=== PATIENT | female | born 1990 | race Caucasian/White ===

== ENCOUNTER → 2021-02-07 15:45 | Outpatient (BNVA) | payer SELFPAY | PROVIDERS: Family Provider Electrodiagnostic Medicine; PCP Registered Nurse; Visit Provider Registered Nurse | DX: Z20.2 Contact with and (suspected) exposure to infections with a predominantly sexual mode of transmission (principal); Z11.3 Encounter for screening for infections with a predominantly sexual mode of transmission | CPT/HCPCS: 87491; 87591; 87661 ==

== ENCOUNTER 2021-11-07 12:02 | Inpatient (IN) | payer MEDICAID, SELFPAY ==
[2021-11-07 12:10] VITALS: BP 106/71; PULSE 117; RESP 17; TEMP 36.4; O2SAT 100; BMI 21.2
--- NOTE | 2021-11-07 12:33 | ECG_ITS ---
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 [id number]
--- NOTE | 2021-11-07 12:36 | ED_ITS ---
HPI - General Adult General: Chief complaint: Psychiatric Symptoms Stated complaint: SI thoughts, severe depression Time Seen by Provider: 11/07/21 12:19 History of Present Illness: HPI: [31]yo patient w/ hx of depression BIBA and polysubstance use presenting to the ED for worsening depression. Patient reports I would be . Patient reports difficulty quitting meth use but denies having any active plans. On arrival, the patient is AAOx3 and cooperative with my evaluation. No focal complaints of chest pain, shortness of breath, palpitations, N/V, focal GI/ complaints. Currently denies HI. No complaints of hallucinations. Onset: chronic Duration: ongoing Location: home Severity: severe Associated symptoms: Deny chest pain, dyspnea, nausea, rash, palpitations or vomiting Review of Systems Const: Denies: fever(s) or chills Eyes: Denies: change in vision ENMT: Denies: mouth pain Card: Denies: chest pain or palpitations Resp: Denies: dyspnea or non-productive cough GI: Denies: abdominal pain, nausea, vomiting or diarrhea : Denies: dysuria Musc: Denies: extremity pain Skin/Breast: Denies: rash or new lesions Neuro: Denies: weakness in extremities Psych: Reports: depression Abdiel/Lymph: Denies: easy bruising PFSH ED PFSH: Family History Grandfather Diabetes Grandmother Diabetes Family/Other Diabetes Aunt Uncle Social History Smoking and tobacco status: current every day smoker Adopted: No Physical Exam Const: COMMON NORMALS: alert HENMT: COMMON NORMALS: atraumatic HEAD & SCALP: atraumatic MOUTH: moist mucous membranes not abnormal Eye: COMMON NORMALS: EOMs intact bilaterally and conjunctivae normal CONJUNCTIVA: Yes conjunctivae normal Neck/C-Spine: COMMON NORMALS: full ROM and supple Resp: COMMON NORMALS: normal respiratory effort and clear to auscultation bilaterally AUSCULTATION: clear to auscultation bilaterally Cardio: COMMON NORMALS: regular rate RATE: regular rate GI: COMMON NORMALS: Soft to palpation and non-tender PALPATION: Yes Soft to palpation Extremity: COMMON NORMALS: full ROM Neuro: SENSORIUM/ORIENTATION: Yes alert MOTOR EXAM: No Abnormal motor strength present and Other motor observations present (no focal motor deficits) Psych: COMMON NORMALS: speech normal SPEECH: Yes normal speech MOOD & AFFECT: Yes depressed mood Course Vital Signs: Vital signs: Vital Signs Temperature 97.9 F 11/09/21 22:00 Pulse Rate 75 11/10/21 09:34 Respiratory Rate 16 11/10/21 09:34 Blood Pressure 94/56 11/10/21 09:34 Pulse Oximetry 97 11/10/21 09:34 MDM - General Adult Medical Decision Making [31]yo patient w/ hx of depression and meth use presenting for worsening depression x 3 months. HDS, exam within normal limit Thoughts are linear and organized, and the patient has no AH/VH, or HI. Clinically the patient displays no overt toxidrome; they are well appearing, with low suspicion for toxic ingestion given history and exam. Symptoms unlikely 2/2 anemia, hypothyroidism, infection, or ICH. Workup: CBC, CMP, Lipase, salicylate/tylenol, UDS, drug screen, TSH/free T4, EKG, HCG, and covid antigen Lab findings: wnl, +meth [1:30pm] On reassessment, labs and workup wnl. Patient is hemodynamically stable with no acute medical complaints. Case discussed with psychiatric provider Dr. Haynes at [facility] psych inpatient with recommendation for admission Disposition: Psych Lab Data : 11/07/21 13:00 11/07/21 13:00 Laboratory Results WBC 10.3 10^3/uL (4.0-10.0) H 11/07/21 13:00 RBC 4.67 10^6/uL (4.1-5.3) 11/07/21 13:00 Hgb 14.8 g/dL (11.5-15.3) 11/07/21 13:00 Hct 45.6 % (37.0-47.0) 11/07/21 13:00 MCV 97.6 fl (81-99) 11/07/21 13:00 MCH 31.7 pg (28.0-34.0) 11/07/21 13:00 MCHC 32.5 g/dL (30.0-36.0) 11/07/21 13:00 RDW 11.9 % (12.1-15.1) L 11/07/21 13:00 Plt Count 357 10^3/cmm (130-400) 11/07/21 13:00 MPV 9.5 fL (7.4-10.4) 11/07/21 13:00 Neut % (Auto) 70.2 % 11/07/21 13:00 Lymph % (Auto) 16.1 % 11/07/21 13:00 [place] % (Auto) 8.7 % 11/07/21 13:00 Eos % (Auto) 3.4 % 11/07/21 13:00 Baso % (Auto) 1.1 % 11/07/21 13:00 Neut # (Auto) 7.24 10^3/uL (1.8-7.7) 11/07/21 13:00 Lymph # (Auto) 1.7 10^3/uL (0.8-4.8) 11/07/21 13:00 [place] # (Auto) 0.9 10^3/uL (0.2-0.9) 11/07/21 13:00 Eos # (Auto) 0.4 10^3/uL (0.0-0.8) 11/07/21 13:00 Baso # (Auto) 0.1 10^3/uL (0.0-0.1) 11/07/21 13:00 Nucleated RBC % (auto) 0 % 11/07/21 13:00 Nucleated RBCs # 0.0 /100WBC 11/07/21 13:00 Sodium 138 mmol/L (136-145) 11/07/21 13:00 Potassium 4.0 mmol/L (3.5-5.1) 11/07/21 13:00 Chloride 105 mmol/L (98-107) 11/07/21 13:00 Carbon Dioxide 23 mmol/L (22-29) 11/07/21 13:00 Anion Gap 14.0 (5-19) 11/07/21 13:00 BUN 8 mg/dL (6-20) 11/07/21 13:00 Creatinine 0.5 mg/dL (0.5-0.9) 11/07/21 13:00 GFR Calculation 145.9 mL/min (90-130) H 11/07/21 13:00 Glucose 65 mg/dL (65-115) 11/07/21 13:00 Calculated Osmolality 282 mOsm/kg (285-295) L 11/07/21 13:00 Calcium 9.4 mg/dL (8.5-10.5) 11/07/21 13:00 HCG, Qual Negative (Negative) 11/07/21 13:00 Salicylates < 0.3 mg/dL (3-10) L 11/07/21 13:00 Urine Opiates Screen Negative ng/mL (Negative) 11/07/21 13:48 Acetaminophen < 5.0 ug/mL (10-30) L 11/07/21 13:00 Ur Barbiturates Screen Negative ng/mL (Negative) 11/07/21 13:48 Ur Phencyclidine Scrn Negative ng/mL (Negative) 11/07/21 13:48 Ur Amphetamines Screen Positive ng/mL (Negative) H 11/07/21 13:48 U Benzodiazepines Scrn Negative ng/mL (Negative) 11/07/21 13:48 Urine Cocaine Screen Negative ng/mL (Negative) 11/07/21 13:48 U Marijuana (THC) Screen Negative ng/mL (Negative) 11/07/21 13:48 Discharge Plan Discharge Patient Disposition: Admitted As Inpatient Admit Provider: Clint Haynes Clinical Impression: Depression, Depression with suicidal ideation Condition: Stable Discharge Diet: Regular Discharge Activity: Resume usual activity Coding Level of Care Code ED Correctional Maintenance Technician for Chriss Fwd Exam Comprehensive
[2021-11-07 13:08] LABS: Basophils # 0.1 10^3/uL (0.0-0.1); Basophils % 1.1 %; Eosinophils # 0.4 10^3/uL (0.0-0.8); Eosinophils % 3.4 %; Hematocrit 45.6 % (37.0-47.0); Hemoglobin 14.8 g/dL (11.5-15.3); Lymphocytes # 1.7 10^3/uL (0.8-4.8); Lymphocytes % 16.1 %; Mean Corpuscular HGB Conc 32.5 g/dL (30.0-36.0); Mean Corpuscular Hemoglobin 31.7 pg (28.0-34.0); Mean Corpuscular Volume 97.6 fl (81-99); Mean Platelet Volume 9.5 fL (7.4-10.4); Monocytes # 0.9 10^3/uL (0.2-0.9); Monocytes % 8.7 %; Neutrophils # 7.24 10^3/uL (1.8-7.7); Neutrophils % 70.2 %; Nucleated Red Blood Cells % 0 %; Platelet Count 357 10^3/cmm (130-400); Red Blood Count 4.67 10^6/uL (4.1-5.3); Red Cell Distribution Width 11.9 % (12.1-15.1); White Blood Count 10.3 10^3/uL (4.0-10.0)
[2021-11-07 13:25] LABS: HCG, Serum Qual Negative (Negative)
[2021-11-07 13:29] LABS: Blood Urea Nitrogen 8 mg/dL (6-20); Calcium 9.4 mg/dL (8.5-10.5); Carbon Dioxide 23 mmol/L (22-29); Chloride 105 mmol/L (98-107); Glomerular Filtration Rate 145.9 mL/min (90-130); Glucose 65 mg/dL (65-115); Osmolality Calculated 282 mOsm/kg (285-295); Sodium 138 mmol/L (136-145)
[2021-11-07 13:36] VITALS: BP 106/71; PULSE 117; RESP 17; O2SAT 100
[2021-11-07 13:38] LABS: Acetaminophen < 5.0 ug/mL (10-30); Salicylate < 0.3 mg/dL (3-10)
[2021-11-07] MEDS: LORazepam 2 mg Tablet PO (13:38)
[2021-11-07 14:40] LABS: Amphetamines Screen Urine Positive (Negative); Barbiturates Screen Urine Negative (Negative); Benzodiazepines Screen Urine Negative (Negative); Cocaine Screen Urine Negative (Negative); Opiate Screen Urine Negative (Negative); PCP Screen Urine Negative (Negative); THC Screen Urine Negative (Negative)
--- NOTE | 2021-11-07 16:28 | PC.NURSE ---
REPORT CALLED TO MAYA RODRIGUEZ
[2021-11-07 18:28] VITALS: BP 100/69; PULSE 89; RESP 17; TEMP 36.8; O2SAT 95
[2021-11-07] MEDS: nicotine 2 mg Gum BUCCAL (18:31)
[2021-11-07 20:26] VITALS: BP 114/65; PULSE 91; RESP 18; TEMP 36.6; O2SAT 99
[2021-11-08 05:44] VITALS: BP 94/60; PULSE 66; RESP 17; TEMP 36.6; O2SAT 99
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
[2021-11-08] MEDS: nicotine 21 mg Patch 1 PATCH TRANSDERMA (09:11)
[2021-11-08] MEDS: fixodent 39 gm Tube 1 APPLIC DENTAL ×2 (10:25→18:22)
[2021-11-08] MEDS: fluoxetine 20 mg Capsule PO (12:27)
--- NOTE | 2021-11-08 12:51 | NPU.GN ---
[facility] Group Topic:Coping Skills General Mood of Group: Ayesha did particpate and attend group today. Her hygiene was good. She seemed emotional. This client was aided in competing the new patient packet for [facility] for therapy and [facility] services.
[2021-11-08] MEDS: acetaminophen 325 mg Tablet 650 MG PO ×2 (13:15→18:54)
[2021-11-08 14:00] VITALS: BP 101/63; PULSE 97; RESP 20; TEMP 37; O2SAT 98
[2021-11-08] MEDS: ARIPiprazole 10 mg Tablet 5 MG PO (17:45)
[2021-11-08 20:16] VITALS: BP 100/62; PULSE 97; RESP 16; TEMP 36.7; O2SAT 97
[2021-11-08] MEDS: ibuprofen 600 mg Tablet PO (21:26)
[2021-11-08] MEDS: blistex lip oint 7 gm Tube 1 APPLIC TOPICAL (21:27)
[2021-11-09] MEDS: trazodone 50 mg Tablet PO (00:15)
--- NOTE | 2021-11-09 03:29 | PC.NURSE ---
Patient c/o cramps due to endometriosis, given PRN ibuprofen with noted effectiveness. Patient later came to nurses desk c/o trouble sleeping, given PRN trazodone with noted effectiveness.
[2021-11-09 06:00] VITALS: BP 98/59; PULSE 57; RESP 16; O2SAT 97
[2021-11-09] MEDS: acetaminophen 325 mg Tablet 650 MG PO (09:24)
[2021-11-09] MEDS: fluoxetine 20 mg Capsule PO (09:24)
[2021-11-09] MEDS: ARIPiprazole 10 mg Tablet PO (09:24)
[2021-11-09] MEDS: nicotine 2 mg Gum BUCCAL ×2 (10:28→10:46)
[2021-11-09] MEDS: nicotine 4 mg lozenge MUCOUS MEM (12:24)
[2021-11-09] MEDS: hyDROXYzine 25 mg Capsule 50 MG PO (12:43)
--- NOTE | 2021-11-09 12:48 | NPU.GN ---
[facility] Topic:Symptoms/ Judgment Boat Activity General Mood of Group: Ayesha did attend and participate in group today. Hygiene was ok , was a bit emotional starting crying during group and left for a few minutes and then came back to group to continue the activity.
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
[2021-11-09 14:00] VITALS: BP 97/56; PULSE 90; RESP 22; TEMP 36.6; O2SAT 99
[2021-11-09] MEDS: ibuprofen 600 mg Tablet PO (14:15)
[2021-11-09] MEDS: OLANZapine 5 mg ODT PO (14:17)
[2021-11-09] MEDS: sertraline 50 mg Tablet 25 MG PO (18:00)
[2021-11-09 22:00] VITALS: BP 97/56; PULSE 90; RESP 22; TEMP 36.6; O2SAT 99
[2021-11-10 06:00] VITALS: BP 94/56; PULSE 75; RESP 16; O2SAT 97
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
[2021-11-10 09:34] VITALS: BP 94/56; PULSE 75; RESP 16; O2SAT 97
== END 2021-11-10 10:17 | disposition home or self-care (01) | DRG 885 ==
LOC: ER 14:18 → NP 11-08 06:04
PROVIDERS: Admitting Provider Psychiatry & Neurology Psychiatry; Emergency Provider Emergency Medicine; PCP Registered Nurse; Visit Provider Psychiatry & Neurology Psychiatry
DX: F29 Unspecified psychosis not due to a substance or known physiological condition (principal); F41.8 Other specified anxiety disorders; F17.210 Nicotine dependence, cigarettes, uncomplicated; F15.10 Other stimulant abuse, uncomplicated; Z11.3 Encounter for screening for infections with a predominantly sexual mode of transmission
CPT/HCPCS: 80048; 80306; 80307; 84703; 85025; 93005; 97150; 97165

== ENCOUNTER 2022-02-14 05:41 | Emergency (ER) | payer MEDICAID, SELFPAY ==
[2022-02-14 05:43] VITALS: BP 104/65; PULSE 92; RESP 18; TEMP 36.6; O2SAT 99
[2022-02-14 06:00] VITALS: BP 105/59; PULSE 95; RESP 18; O2SAT 98
[2022-02-14 06:15] VITALS: BP 102/63; PULSE 85; RESP 18; O2SAT 100
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
[2022-02-14 06:30] VITALS: BP 110/64; PULSE 85; RESP 18; O2SAT 100
[2022-02-14 06:34] LABS: Basophils % 0.7 %; Eosinophils % 0.5 %; Hematocrit 34.7 % (37.0-47.0); Hemoglobin 11.9 g/dL (11.5-15.3); Lymphocytes # 1.4 10^3/uL (0.8-4.8); Lymphocytes % 23.5 %; Mean Corpuscular HGB Conc 34.3 g/dL (30.0-36.0); Mean Corpuscular Hemoglobin 31.8 pg (28.0-34.0); Mean Corpuscular Volume 92.8 fl (81-99); Mean Platelet Volume 10.5 fL (7.4-10.4); Monocytes # 0.8 10^3/uL (0.2-0.9); Neutrophils # 3.64 10^3/uL (1.8-7.7); Neutrophils % 62.1 %; Nucleated Red Blood Cells % 0 %; Platelet Count 281 10^3/cmm (130-400); Red Blood Count 3.74 10^6/uL (4.1-5.3); Red Cell Distribution Width 13.3 % (12.1-15.1); White Blood Count 5.9 10^3/uL (4.0-10.0)
[2022-02-14] MEDS: hyDROXYzine 25 mg Capsule PO (06:39)
[2022-02-14 07:30] VITALS: BP 117/76; PULSE 83; RESP 12; O2SAT 97
== END 2022-02-14 07:47 | disposition home or self-care (01) ==
PROVIDERS: Emergency Provider Family Medicine
DX: F15.10 Other stimulant abuse, uncomplicated (principal); F41.9 Anxiety disorder, unspecified; F17.200 Nicotine dependence, unspecified, uncomplicated
CPT/HCPCS: 85025; 99283

== ENCOUNTER 2022-03-01 04:49 | Inpatient (IN) | payer MEDICAID, SELFPAY ==
[2022-03-01] VITALS (10 sets, daily range): BP systolic 86–133; BP diastolic 52–80; PULSE 60–120; RESP 13–18; TEMP 36.2–36.7; O2SAT 93–100; BMI 20.3
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
[2022-03-01] MEDS: LORazepam 2 mg/mL INJ 1 mL IVP (05:07)
[2022-03-01 05:18] LABS: Basophils # 0.1 10^3/uL (0.0-0.1); Basophils % 0.9 %; Eosinophils % 0.2 %; Hematocrit 37.6 % (37.0-47.0); Hemoglobin 12.8 g/dL (11.5-15.3); Lymphocytes # 1.2 10^3/uL (0.8-4.8); Lymphocytes % 12.7 %; Mean Corpuscular Hemoglobin 32.1 pg (28.0-34.0); Mean Corpuscular Volume 94.2 fl (81-99); Mean Platelet Volume 9.5 fL (7.4-10.4); Monocytes # 0.9 10^3/uL (0.2-0.9); Monocytes % 9.9 %; Neutrophils # 6.99 10^3/uL (1.8-7.7); Neutrophils % 76.1 %; Nucleated Red Blood Cells % 0 %; Platelet Count 284 10^3/cmm (130-400); Red Blood Count 3.99 10^6/uL (4.1-5.3); Red Cell Distribution Width 13.5 % (12.1-15.1); White Blood Count 9.2 10^3/uL (4.0-10.0)
[2022-03-01 05:28] LABS: HCG, Serum Qual Negative (Negative)
[2022-03-01 05:40] LABS: Alanine Aminotransferase 11 U/L (0-33); Albumin Level 4.3 g/dL (3.5-5.2); Alkaline Phosphatase 76 IU/L (35-105); Anion Gap 15.6 (5-19); Aspartate Amino Transferase 12 U/L (0-32); Blood Urea Nitrogen 11 mg/dL (6-20); Calcium 8.6 mg/dL (8.5-10.5); Carbon Dioxide 23 mmol/L (22-29); Chloride 103 mmol/L (98-107); Globulin 2.6 g/dL (1.3-4.6); Glomerular Filtration Rate 118.2 mL/min (90-130); Glucose 103 mg/dL (65-115); Osmolality Calculated 286 mOsm/kg (285-295); Potassium 3.6 mmol/L (3.5-5.1); Sodium 138 mmol/L (136-145); Total Bilirubin 0.2 mg/dL (0.15-1.2); Total Protein 6.9 g/dL (6.6-8.7)
[2022-03-01 05:42] LABS: Acetaminophen < 5.0 ug/mL (10-30); Alcohol Level < 10 mg/dL (0-10); Salicylate < 0.3 mg/dL (3-10)
--- NOTE | 2022-03-01 07:15 | PC.NURSE ---
Shift report received. Pt resting in bed, eyes closed, resp even and unlabored. Care assumed.
--- NOTE | 2022-03-01 09:16 | PC.PHAR ---
pt unable to verify medications-medications entered are from previous entered med list and ext med history notes are made in the pharmacy comments
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
[2022-03-01] MEDS: OLANZapine 5 mg ODT PO (14:41)
[2022-03-02 06:18] VITALS: BP 89/52; PULSE 63; RESP 14; TEMP 36.8; O2SAT 97
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
[2022-03-02] MEDS: fixodent 39 gm Tube 1 APPLIC DENTAL ×2 (10:32→20:56)
[2022-03-02] MEDS: nicotine 21 mg Patch 1 PATCH TRANSDERMA (10:34)
[2022-03-02] MEDS: sertraline 50 mg Tablet 200 MG PO (10:34)
[2022-03-02] MEDS: acetaminophen 325 mg Tablet 650 MG PO ×2 (11:00→14:51)
[2022-03-02] MEDS: buPROPion SR (12 HR) 150 mg Tablet PO (13:52)
[2022-03-02 14:00] VITALS: BP 104/61; PULSE 120; RESP 17; TEMP 36.7; O2SAT 98
[2022-03-02 19:31] VITALS: BP 109/71; PULSE 105; RESP 18; TEMP 36.9; O2SAT 98
[2022-03-02] MEDS: risperiDONE 2 mg Tablet PO (20:56)
[2022-03-02] MEDS: trazodone 50 mg Tablet PO (20:57)
[2022-03-03 06:00] VITALS: BP 99/62; PULSE 66; RESP 18; TEMP 36.6; O2SAT 97
[2022-03-03] MEDS: buPROPion SR (12 HR) 150 mg Tablet PO (06:10)
[2022-03-03] MEDS: nicotine 21 mg Patch 1 PATCH TRANSDERMA (08:35)
[2022-03-03] MEDS: sertraline 50 mg Tablet 200 MG PO (08:35)
[2022-03-03] MEDS: propranolol 20 mg Tablet PO (08:57)
--- NOTE | 2022-03-03 10:08 | P.NPUPN_ITS ---
Subjective NPU Subjective: She says that she is feeling somewhat better. She slept well with the trazodone 50 mg last night. She could not tell anything from the Wellbutrin 150 mg yesterday afternoon or this morning. She cannot tell anything and does not have side effects from the Zoloft 200 mg. We talked more about the long- term consequences of methamphetamine. She says that she did not know that he could cause permanent psychosis. She was encouraged to really think about the short-term and long-term consequences to her methamphetamine abuse and consider making a commitment to abstain permanently. Mental Status Exam MSE Comments: This is a 31-year-old thin female who appears a little older than her stated age and is in no acute distress. She was found in bed at 9:30 AM but arouses easily. Her grooming is poor and she is dressed in hospital scrubs. psychomotor activity is normal. Speech is at a regular rate and rhythm, normal volume, good articulation, not pressured. Alert, oriented X3 Attention and concentration appears to be normal. Memory is intact Mood is mildly depressed. Affect is mildly dysphoric. Thought process is logical and goal-directed. Thought content: She denies auditory and visual hallucinations hallucinations. She does not appear delusional at this time. No current suicidal ideation. He denies homicidal ideation. Fund of knowledge is average. Insight and judgment appear to be poor. Impulse control is poor. Cognition: Patient Appearance: Disheveled/Poor Hygiene Level of Consciousness: Awake and Alert Patient Cognition Impaired: No Ability to Follow Directions: Poor Patient Orientation (long list): Person, Place, Name, Age, Birthday, Month and Year Comprehension Ability: Moderate Impairment Hallucination Type: None Delusion Description: Not Present Thought Process: Appropriate Affect: Affect Description: Appropriate Depressive Symptoms: Insomnia Behavior: Patient Behavior: Appropriate and Cooperative Speech Pattern: Appropriate Vitals/I&O/Wt Last Vital Signs Temp 97.9 F 03/03/22 06:00 Pulse 66 03/03/22 06:00 Resp 18 03/03/22 06:00 BP 99/62 03/03/22 06:00 Pulse Ox 97 03/03/22 06:00 Data NPU : 03/01/22 05:10 03/01/22 05:10 A&P Assessment and plan (1) Acute psychosis: Status: Acute (2) Bipolar disorder: Status: Acute (3) Major depressive disorder, recurrent, mild: Status: Acute (4) Alcohol dependence, uncomplicated: Status: Acute (5) Methamphetamine abuse: Status: Acute (6) Anxiety: Status: Acute Plan This is a 31-year-old female with chronic methamphetamine abuse, anxiety and depression who reports ongoing auditory and visual hallucinations plan: 1. Continue current medication. Increase Zoloft to 200 mg daily. Add risperidone 2 mg with the plan to increase as tolerated. Increase Wellbutrin to 300 mg daily 2. Continue every 15 minute checks for safety. 3. Encourage individual, group and milieu therapies. 4. Encourage sober living treatment after discharge at the highest level of care to which she is willing to commit. 5. We will monitor for safety for herself in the community prior to discharge. Involuntary Hold Information 96 Hour Hold: 96 Hour Involuntary Admission: Yes 96 Hour Hold Ending Date: 03/07/22 96 Hour Hold Ending Time: 09:45 Attestations NPU Medical Necessity Statement*: Inpatient hospitalization is medically necessary and the clinically appropriate intervention at this time. We will initiate medications and make changes as indicated. Coding Level of Care Code Acute Spring Production Supervisor for Chriss Daley Diagnoses Acute psychosis F23 Bipolar disorder F31.9 Major depressive disorder, recurrent, mild F33.0 Alcohol dependence, uncomplicated F10.20 Methamphetamine abuse F15.10 Anxiety F41.9
[2022-03-03] MEDS: acetaminophen 325 mg Tablet 650 MG PO (10:19)
[2022-03-03 14:00] VITALS: BP 106/62; PULSE 66; RESP 18; TEMP 36.6; O2SAT 99
[2022-03-03 19:58] VITALS: BP 100/69; PULSE 90; RESP 22; TEMP 36.7; O2SAT 98
[2022-03-03] MEDS: trazodone 50 mg Tablet PO (20:14)
[2022-03-03] MEDS: risperiDONE 2 mg Tablet PO (20:15)
[2022-03-04 06:00] VITALS: BP 98/56; PULSE 69; RESP 16; TEMP 36.8; O2SAT 96; BMI 20.3
[2022-03-04] MEDS: sertraline 50 mg Tablet 200 MG PO (08:14)
[2022-03-04] MEDS: buPROPion XL (24 HR) 300 mg Tablet PO (08:14)
[2022-03-04] MEDS: nicotine 21 mg Patch 1 PATCH TRANSDERMA (08:44)
--- NOTE | 2022-03-04 10:52 | P.NPUPN_ITS ---
Subjective NPU Subjective: She is doing much better. She says that her mind is thinking clearly. She has plenty of energy and does not feel like she would have a problem going to work. She seems to have better insight into the problems that methamphetamine is causing her. She is adamant that she is not going to go back to using that. She is not sure if she still has a job. She was not a very good employee and they gave her a lot of chances before. She would not blame them if they fired her. Mental Status Exam MSE Comments: This is a 31-year-old thin female who appears a little older than her stated age and is in no acute distress. She was found in the day room at 10:45 AM watching television. Her grooming is fair and she is dressed in hospital scrubs. psychomotor activity is normal. Speech is at a regular rate and rhythm, normal volume, good articulation, not pressured. Alert, oriented X3 Attention and concentration appears to be normal. Memory is intact Mood is good. Affect is euthymic. Thought process is logical and goal-directed. Thought content: She denies auditory and visual hallucinations hallucinations. She does not appear delusional at this time. No current suicidal ideation. He denies homicidal ideation. Fund of knowledge is average. Insight and judgment appear to be improved. Impulse control is improved. Cognition: Patient Appearance: Appropriate Level of Consciousness: Awake and Alert Patient Cognition Impaired: No Ability to Follow Directions: Poor Patient Orientation (long list): Person, Place, Name, Age, Birthday, Month and Year Comprehension Ability: Moderate Impairment Hallucination Type: None Delusion Description: Not Present Thought Process: Appropriate Affect: Affect Description: Appropriate Depressive Symptoms: Insomnia Behavior: Patient Behavior: Appropriate and Cooperative Speech Pattern: Appropriate Vitals/I&O/Wt Last Vital Signs Temp 98.2 F 03/04/22 06:00 Pulse 69 03/04/22 06:00 Resp 16 03/04/22 06:00 BP 98/56 03/04/22 06:00 Pulse Ox 96 03/04/22 06:00 Weight last 48 hrs Weight 52.163 kg Data NPU : 03/01/22 05:10 03/01/22 05:10 A&P Assessment and plan (1) Acute psychosis: Status: Acute (2) Bipolar disorder: Status: Acute (3) Major depressive disorder, recurrent, mild: Status: Acute (4) Alcohol dependence, uncomplicated: Status: Acute (5) Methamphetamine abuse: Status: Acute (6) Anxiety: Status: Acute Plan This is a 31-year-old female with chronic methamphetamine abuse, anxiety and depression who reports ongoing auditory and visual hallucinations plan: 1. Continue current medication. Increase Zoloft to 200 mg daily. risperidone 2 mg with the plan to increase as tolerated. Increase Wellbutrin to 300 mg daily 2. Continue every 15 minute checks for safety. 3. Encourage individual, group and milieu therapies. 4. Encourage sober living treatment after discharge at the highest level of care to which she is willing to commit. 5. We will monitor for safety for herself in the community prior to discharge. Involuntary Hold Information 96 Hour Hold: 96 Hour Involuntary Admission: Yes 96 Hour Hold Ending Date: 03/07/22 96 Hour Hold Ending Time: 09:45 Attestations NPU Medical Necessity Statement*: Inpatient hospitalization is medically necessary and the clinically appropriate intervention at this time. We will initiate me dications and make changes as indicated. Coding Level of Care Code Acute [employer] Launch [employer] for Chriss Daley Diagnoses Acute psychosis F23 Bipolar disorder F31.9 Major depressive disorder, recurrent, mild F33.0 Alcohol dependence, uncomplicated F10.20 Methamphetamine abuse F15.10 Anxiety F41.9
[2022-03-04 13:14] VITALS: BP 100/62; PULSE 99; RESP 16; TEMP 36.7; O2SAT 98
[2022-03-04] MEDS: OLANZapine 5 mg ODT PO (13:51)
--- NOTE | 2022-03-04 18:50 | PC.NURSE ---
PRN MEDICATION PT C/O ANXIETY. ZYDIS GIVEN ORDERED.
[2022-03-04] MEDS: risperiDONE 2 mg Tablet PO (20:44)
[2022-03-04] MEDS: trazodone 50 mg Tablet PO (20:44)
[2022-03-04 20:46] VITALS: BP 141/93; PULSE 79; RESP 16; TEMP 36.8; O2SAT 98
[2022-03-05 06:00] VITALS: BP 107/58; PULSE 81; RESP 14; TEMP 36.1; O2SAT 96
--- NOTE | 2022-03-05 07:50 | W.PM.NPUDCS ---
Diagnoses at Discharge Discharge Diagnosis (1) Acute psychosis: Status: Acute (2) Bipolar disorder: Status: Acute (3) Major depressive disorder, recurrent, mild: Status: Acute (4) Alcohol dependence, uncomplicated: Status: Acute (5) Methamphetamine abuse: Status: Acute (6) Anxiety: Status: Acute Reason for Visit Reason for Visit: grossman cp Brief History: History of Present Illness Ayesha Villatoro is a 31 year old female admitted to our emergency department with the following report: 31-year-old female who has a history of methamphetamine abuse.? States she last used 2 days ago police were at the scene at her house EMS arrived as well patient is having hallucinations.? She is states she feels like someone is poisoning her and that she is dying.? States she feels like her ex-boyfriend's been out to get her she says that she feels like she has laser beams that are burning her eyes and laser beams in her chest.? She denies any suicidal or homicidal ideation.? Denies any worsening improving factors.? She also states she has been having some suicidal ideations as well. Associated symptoms: Deny chest pain, dyspnea, headache(s), nausea, rash or vomiting She was admitted to the neuropsychiatry unit for definitive treatment of these issues.? She says she has continued to take the Zoloft 100 mg daily and feels that it is beneficial.? She saw Madeleine Cordova in the outpatient department and was prescribed Abilify 5 mg daily.? She did not take that because it makes her tongue feels swollen.? She has difficulty swallowing.? She has continued to use methamphetamine on a daily basis.? She has continued to have auditory and visual hallucinations as well as paranoia.? She says that she needs the methamphetamine to give her energy to work and function.? She did not go to the outpatient treatment as recommended.? 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 She is mostly concerned about going home so that she can go to work this week and make money.? She does want to take something to help her hallucinations.? She agreed to take some risperidone.? She is not concerned about increased appetite.? She has lost weight this year.? She does not sleep.? She also requested to increase the Zoloft up to 200 mg. Hospital Course Hospital Course She slowly acclimated to the individual, group and milieu therapies provided. Zoloft was increased to 200 mg and Wellbutrin was increased to 300 mg daily. Propranolol 20 mg 3 times a day was added with some benefit for her anxiety. Abilify was changed to risperidone 2 mg. She tolerated these doses and showed steady improvement during her stay. She was able to contract for safety outside hospital prior to discharge. During the hospitalization, patient had routine laboratory studies which were within normal limits except for few outliers. Additionally there was a general medical evaluation which was also within normal limits and revealed no new acute processes. Discharge Summary: At the time of discharge, lethality was denied and psychosis was resolving. She was adamant that she was going to stop using methamphetamine but did not want treatment. Mood and anxiety were well managed. Patient endorsed a plan to follow-up with the aftercare recommendations of the treatment team. Patient was evaluated and deemed to be absent credible lethality, and had achieved the maximum benefit from an inpatient hospitalization, so was discharged. Involuntary Hold Information 96 Hour Hold: 96 Hour Involuntary Admission: Yes 96 Hour Hold Ending Date: 03/07/22 96 Hour Hold Ending Time: 09:45 Mental Status Exam MSE Comments: This is a 31-year-old thin female who appears a little older than her stated age and is in no acute distress. She was found in bed at 7:45 AM but not asleep Her grooming is fair and she is dressed in hospital scrubs. psychomotor activity is normal. Speech is at a regular rate and rhythm, normal volume, good articulation, not pressured. Alert, oriented X3 Attention and concentration appears to be normal. Memory is intact Mood is good. Affect is euthymic. Thought process is logical and goal-directed. Thought content: She denies auditory and visual hallucinations hallucinations. She does not appear delusional at this time. No current suicidal ideation. He denies homicidal ideation. Fund of knowledge is average. Insight and judgment appear to be improved. Impulse control is improved. Cognition: Patient Appearance: Appropriate Level of Consciousness: Awake and Alert Patient Cognition Impaired: No Ability to Follow Directions: Poor Patient Orientation (long list): Person, Place, Name, Age and Birthday Comprehension Ability: Moderate Impairment Hallucination Type: None Delusion Description: Not Present Thought Process: Appropriate Affect: Affect Description: Appropriate and Calm Depressive Symptoms: Insomnia Behavior: Patient Behavior: Appropriate and Cooperative Speech Pattern: Appropriate and Clear Discharge Data Studies Completed and Pending: Laboratory Results WBC 9.2 10^3/uL (4.0- 10.0) 03/01/22 05:10 RBC 3.99 10^6/uL (4.1 -5.3) L 03/01/22 05:10 Hgb 12.8 g/dL (11.5-1 5.3) 03/01/22 05:10 Hct 37.6 % (37.0-47.0 ) 03/01/22 05:10 MCV 94.2 fl (81-99) 03/01/22 05:10 MCH 32.1 pg (28.0-34. 0) 03/01/22 05:10 MCHC 34.0 g/dL (30.0-3 6.0) 03/01/22 05:10 RDW 13.5 % (12.1-15.1 ) 03/01/22 05:10 Plt Count 284 10^3/cmm (130 -400) 03/01/22 05:10 MPV 9.5 fL (7.4-10.4) 03/01/22 05:10 Neut % (Auto) 76.1 % 03/01/22 05:10 Lymph % (Auto) 12.7 % 03/01/22 05:10 [place] % (Auto) 9.9 % 03/01/22 05:10 Eos % (Auto) 0.2 % 03/01/22 05:10 Baso % (Auto) 0.9 % 03/01/22 05:10 Neut # (Auto) 6.99 10^3/uL (1.8 -7.7) 03/01/22 05:10 Lymph # (Auto) 1.2 10^3/uL (0.8- 4.8) 03/01/22 05:10 [place] # (Auto) 0.9 10^3/uL (0.2- 0.9) 03/01/22 05:10 Eos # (Auto) 0.0 10^3/uL (0.0- 0.8) 03/01/22 05:10 Baso # (Auto) 0.1 10^3/uL (0.0- 0.1) 03/01/22 05:10 Nucleated RBC % (a uto) 0 % 03/01/22 05:10 Nucleated RBCs # 0.0 /100WBC 03/01/22 05:10 Sodium 138 mmol/L (136-1 45) 03/01/22 05:10 Potassium 3.6 mmol/L (3.5-5 .1) 03/01/22 05:10 Chloride 103 mmol/L (98-10 7) 03/01/22 05:10 Carbon Dioxide 23 mmol/L (22-29) 03/01/22 05:10 Anion Gap 15.6 (5-19) 03/01/22 05:10 BUN 11 mg/dL (6-20) 03/01/22 05:10 Creatinine 0.6 mg/dL (0.5-0. 9) 03/01/22 05:10 GFR Calculation 118.2 mL/min (90- 130) 03/01/22 05:10 Glucose 103 mg/dL (65-115 ) 03/01/22 05:10 Calculated Osmolal ity 286 mOsm/kg (285- 295) 03/01/22 05:10 Calcium 8.6 mg/dL (8.5-10 .5) 03/01/22 05:10 Total Bilirubin 0.2 mg/dL (0.15-1 .2) 03/01/22 05:10 AST 12 U/L (0-32) 03/01/22 05:10 ALT 11 U/L (0-33) 03/01/22 05:10 Alkaline Phosphata se 76 IU/L (35-105) 03/01/22 05:10 Total Protein 6.9 g/dL (6.6-8.7 ) 03/01/22 05:10 Albumin 4.3 g/dL (3.5-5.2 ) 03/01/22 05:10 Globulin 2.6 g/dL (1.3-4.6 ) 03/01/22 05:10 HCG, Qual Negative (Negati ve) 03/01/22 05:10 Salicylates < 0.3 mg/dL (3-10 ) L 03/01/22 05:10 Acetaminophen < 5.0 ug/mL (10-3 0) L 03/01/22 05:10 Ethyl Alcohol < 10 mg/dL (0-10) 03/01/22 05:10 Vitals: Last Vital Signs Temp 97 F L 03/05/22 06:00 Pulse 81 03/05/22 06:00 Resp 14 03/05/22 06:00 BP 107/58 03/05/22 06:00 Pulse Ox 96 03/05/22 06:00 Discharge Plan Discharge Patient Disposition: Home Condition: Stable Prescriptions: New trazodone 50 mg Tablet 50 mg PO BEDTIME PRN (Reason: Sleep) 30 Days Qty: 30 1RF risperidone 2 mg Tablet 2 mg PO BEDTIME 30 Days Qty: 30 1RF propranolol 20 mg Tablet 20 mg PO TID PRN (Reason: elevated heart rate\) 30 Days Qty: 3 1RF sertraline 50 mg Tablet 200 mg PO DAILY 30 Days Qty: 120 1RF bupropion HCl 300 mg Tablet Extended Release 24 Hr 300 mg PO DAILY 30 Days Qty: 30 1RF Continued hydroxyzine HCl 50 mg tablet 50 mg PO Q12H PRN (Reason: Anxiety) 30 Days Qty: 60 1RF Discontinued aripiprazole [Abilify] 5 mg tablet 5 mg PO DAILY Qty: 30 1RF sertraline 100 mg tablet See Rx Instructions .ROUTE .COMPLEX 0RF Rx Instructions: Half tablet (50mg) daily for 7 days then increase to a full tablet (100mg) daily. Discharge Orders: Discharge Order (Routine); Ordered 03/05/22 Ordered By: Viktor Tom Referrals: Madeleine Villalobos PMHNP [Staff Physician] - Discharge Diet: Regular Discharge Activity: Resume usual activity Patient Instructions: Bipolar Disorder (DC), Depression (DC), Methamphetamine Use Disorder (DC), Anxiety (DC), Opioid Safety Discharge Attestations NPU Time Spent in Discharge Care*: less than 30 min Specific Discharge Activities: Specific discharge activities: educating patient, discussing with case consultant/social workers/dc planners, documenting/other paperwork and evaluating patient/reviewing data Coding Level of Care Code Acute Chg FW DC note Diagnoses Acute psychosis F23 Bipolar disorder F31.9 Major depressive disorder, recurrent, mild F33.0 Alcohol dependence, uncomplicated F10.20 Methamphetamine abuse F15.10 Anxiety F41.9
[2022-03-05] MEDS: buPROPion XL (24 HR) 300 mg Tablet PO (08:03)
[2022-03-05] MEDS: sertraline 50 mg Tablet 200 MG PO (08:03)
[2022-03-05] MEDS: fixodent 39 gm Tube 1 APPLIC DENTAL (08:11)
[2022-03-05 08:29] VITALS: BP 107/58; PULSE 81; RESP 14; TEMP 36.1; O2SAT 96
== END 2022-03-05 09:12 | disposition home or self-care (01) | DRG 885 ==
LOC: ER 05:14 → NP 05:50
PROVIDERS: Admitting Provider Psychiatry & Neurology Psychiatry; Emergency Provider Emergency Medicine; Visit Provider Psychiatry & Neurology Psychiatry
DX: F23 Brief psychotic disorder (principal); F33.9 Major depressive disorder, recurrent, unspecified; R45.851 Suicidal ideations; F15.10 Other stimulant abuse, uncomplicated; F17.210 Nicotine dependence, cigarettes, uncomplicated; F41.9 Anxiety disorder, unspecified
CPT/HCPCS: 80053; 80307; 84703; 85025; 96374; 97150; 97165; 99285; J2060

== ENCOUNTER 2022-03-07 11:31 | Emergency (ER) | payer MEDICAID, SELFPAY ==
[2022-03-07 11:36] VITALS: BP 123/103; PULSE 110; RESP 15; TEMP 37; O2SAT 97; BMI 21.2
--- NOTE | 2022-03-07 11:47 | ECG_ITS ---
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 Measurements Intervals [place] Rate: 105 P: 82 NH: 152 QRS: 86 QRSD: 74 T: 71 QT: 323 QTc: 428 Interpretive Statements SINUS TACHYCARDIA POSSIBLE RIGHT ATRIAL ENLARGEMENT [0.25mV P-WAVE] LEFT ATRIAL ENLARGEMENT [-0.15mV P-WAVE IN V1/V2] Compared to ECG 11/07/2021 17:14:32 Sinus rhythm no longer present Electronically Signed On 03-07-2022 20:19:46 CDT by Jorge A Hough M.D. [id number]
--- NOTE | 2022-03-07 11:47 | XR_ITS ---
WS: [id number] Exam: XR chest 1V portable [id number] Date/Time of Exam: 03/07/2022 11:55 AM Reason For Exam: sob No priors. Findings: The lungs are clear and fully expanded. Costophrenic angles are sharp. No infiltrates. Bronchovascula r relief appears normal. Cardiac silhouette is unremarkable. Bony elements are intact. XR/XR chest 1V portable [id number] IMPRESSION: Unremarkable chest radiograph.
--- NOTE | 2022-03-07 15:53 | ED_ITS ---
HPI - Anxiety General: Chief Complaint: Anxiety Stated Complaint: anxiety/heart racing/SOB Time Seen by Provider: 03/07/22 15:53 Source: patient Mode of arrival: ambulatory Limitations: no limitations History of Present Illness: 31-year-old female presents to the emergency room with rapid heart rate rapid breathing numbness and tingling to the arms and legs perioral numbness as well. She was recently hospitalized for anxiety issues in the MPU. MD complaint: anxiety Onset (ago): minute(s) Symptoms: dyspnea Severity: mild Quality: constant Place: home Relieving factors: nothing Exacerbating factors: nothing Associated symptoms: Reports headache(s) and malaise; Deny anorexia, chest pain, chills, confusion, diaphoresis, fever(s), nausea, palpitations, short of breath, syncope, vomiting or weakness Review of Systems Const: Reports: malaise; Denies: fever(s), chills, fatigue or diaphoresis ENMT: Denies: throat pain, ear or mastoid pain, nasal discharge or nasal congestion Card: Denies: chest pain, palpitations or syncope Resp: Denies: dyspnea, productive cough or non-productive cough GI: Denies: abdominal pain, nausea or vomiting : Denies: flank pain, difficulty voiding, dysuria, urinary frequency or urinary urgency Skin/Breast: Denies: rash or pruritus Neuro: Reports: headache(s) and numbness in extremities; Denies: confusion Psych: Reports: anxiety [facility] ED PFSH: Medical History Alcohol dependence, uncomplicated Anxiety Cannabis dependence without complication Major depressive disorder, recurrent, mild Nicotine dependence, cigarettes, uncomplicated Opioid dependence, in remission 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, unspecified Psychiatric care Family History Grandfather Diabetes Grandmother Diabetes Family/Other Diabetes Aunt Uncle Social History Smoking and tobacco status: current every day smoker Adopted: No Female Reproductive History: Date of last menstrual period: 10/07/21 Physical Exam Const: COMMON NORMALS: no acute distress GENERAL APPEARANCE: cooperative and comfortable ORIENTATION/CONSCIOUSNESS: Yes awake, Yes oriented to person, Yes oriented to place and Yes oriented to time HENMT: COMMON NORMALS: normocephalic, atraumatic and hearing grossly normal bilaterally HEAD & SCALP: normocephalic and atraumatic Neck/C-Spine: COMMON NORMALS: no JVD Resp: COMMON NORMALS: normal respiratory effort, No retractions, No use of accessory muscles and clear to auscultation bilaterally AUSCULTATION: clear to auscultation bilaterally Cardio: COMMON NORMALS: no JVD, regular rate, regular rhythm and No murmurs present (Cardio) RATE: regular rate RHYTHM: regular rhythm GI: COMMON NORMALS: Soft to palpation and No hepatosplenomegaly present AUSCULTATION: Yes normoactive bowel sounds PALPATION: Yes Soft to palpation, No Tenderness to palpation present (GI), No Guarding due to palpation present (GI) and Yes No hepatosplenomegaly present Extremity: COMMON NORMALS: normal to inspection, capillary refill normal, no clubbing, cyanosis or edema, no calf tenderness and no pedal edema Neuro: SENSORIUM/ORIENTATION: Yes oriented to person, Yes oriented to place and Yes oriented to time Skin: COMMON NORMALS: no rashes or lesions noted GENERAL SKIN EXAM: no rashes or lesions noted Course Vital Signs: Vital signs: Vital Signs Temperature 98.6 F 03/07/22 11:36 Pulse Rate 110 H 03/07/22 11:36 Respiratory Rate 15 03/07/22 11:36 Blood Pressure 123/103 03/07/22 11:36 Pulse Oximetry 97 03/07/22 11:36 MDM - Anxiety Medical Decision Making Patient having acute anxiety attack did improve after medication. We will discharge her home with hydroxyzine. Continue her other medications specifically bupropion and propranolol sertraline and trazodone. Follow-up with [facility] for further medication adjustments. Medical Records I reviewed the patient's medical records. Lab Data I reviewed the patient's lab results. Radiology Impressions Chest X-Ray 03/07/22 11:47 IMPRESSION: Unremarkable chest radiograph. Discharge Plan Discharge Patient Disposition: Home Clinical Impression: Anxiety, Hyperventilation Condition: Stable Prescriptions: No Action trazodone 50 mg Tablet 50 mg PO BEDTIME PRN (Reason: Sleep) 30 Days Qty: 30 1RF risperidone 2 mg Tablet 2 mg PO BEDTIME 30 Days Qty: 30 1RF propranolol 20 mg Tablet 20 mg PO TID PRN (Reason: elevated heart rate\) 30 Days Qty: 3 1RF sertraline 50 mg Tablet 200 mg PO DAILY 30 Days Qty: 120 1RF bupropion HCl 300 mg Tablet Extended Release 24 Hr 300 mg PO DAILY 30 Days Qty: 30 1RF hydroxyzine HCl 50 mg tablet 50 mg PO Q12H PRN (Reason: Anxiety) 30 Days Qty: 60 1RF Discharge Orders: Discharge ED (Routine); Ordered 03/07/22 Ordered By: Luis Eduardo Gamboa Patient Instructions: Opioid Safety Activity Restrictions/Additional Instructions: Use hydroxyzine that was prescribed previously. Follow-up with [facility] tomorrow as scheduled. Coding Level of Care Code ED Maintenance Plumber for Chriss Daley
[2022-03-07] MEDS: LORazepam 2 mg Tablet PO (16:30)
== END 2022-03-07 17:45 | disposition home or self-care (01) ==
PROVIDERS: Emergency Provider Family Medicine
DX: F41.9 Anxiety disorder, unspecified (principal); R06.4 Hyperventilation
CPT/HCPCS: 71045; 93005; 99284

== ENCOUNTER 2022-04-01 16:41 | Emergency (ER) | payer MEDICAID, SELFPAY ==
[2022-04-01 16:50] VITALS: BP 145/72; PULSE 106; RESP 18; TEMP 36.7; O2SAT 98; BMI 21.2
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
== END 2022-04-01 18:02 | disposition home or self-care (01) ==
PROVIDERS: Emergency Provider Physician Assistant
DX: T74.11XA Adult physical abuse, confirmed, initial encounter (principal); F17.210 Nicotine dependence, cigarettes, uncomplicated; Y07.410 Brother, perpetrator of maltreatment and neglect
CPT/HCPCS: 99281

== ENCOUNTER → 2022-09-27 11:10 | Outpatient (BNVA) | payer MEDICAID, SELFPAY | PROVIDERS: Visit Provider Nurse Practitioner Family | DX: N91.2 Amenorrhea, unspecified (principal); Z11.3 Encounter for screening for infections with a predominantly sexual mode of transmission | CPT/HCPCS: 81000; 81025; 87491; 87591; 87661 ==

== ENCOUNTER 2023-04-27 16:30 | Inpatient (IN) | payer MEDICAID, SELFPAY ==
[2023-04-27 16:31] VITALS: BP 124/81; PULSE 129; RESP 18; TEMP 37.1; O2SAT 98; BMI 24.7
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
[2023-04-27 16:43] VITALS: BP 124/81; PULSE 129; RESP 18; O2SAT 98
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
[2023-04-27] MEDS: nicotine 14 mg Patch 1 PATCH TRANSDERMA (17:22)
[2023-04-27 17:40] LABS: Basophils # 0.1 10^3/uL (0.0-0.1); Basophils % 1.1 %; Eosinophils % 0.2 %; Hematocrit 39.9 % (37.0-47.0); Hemoglobin 13.3 g/dL (11.5-15.3); Lymphocytes # 1.7 10^3/uL (0.8-4.8); Lymphocytes % 32.7 %; Mean Corpuscular HGB Conc 33.3 g/dL (30.0-36.0); Mean Corpuscular Hemoglobin 31.9 pg (28.0-34.0); Mean Corpuscular Volume 95.7 fl (81-99); Mean Platelet Volume 9.7 fL (7.4-10.4); Monocytes # 0.6 10^3/uL (0.2-0.9); Monocytes % 11.1 %; Neutrophils # 2.85 10^3/uL (1.8-7.7); Neutrophils % 54.5 %; Nucleated Red Blood Cells % 0 %; Platelet Count 315 10^3/cmm (130-400); Red Blood Count 4.17 10^6/uL (4.1-5.3); Red Cell Distribution Width 12.6 % (12.1-15.1); White Blood Count 5.2 10^3/uL (4.0-10.0)
[2023-04-27 18:09] LABS: HCG, Serum Qual Negative (Negative)
[2023-04-27 18:21] LABS: Alanine Aminotransferase 14 U/L (0-33); Albumin Level 4.3 g/dL (3.5-5.2); Alcohol Level 200 mg/dL (0-10); Alkaline Phosphatase 60 U/L (35-105); Anion Gap 13.9 (5-19); Aspartate Amino Transferase 23 U/L (0-32); Blood Urea Nitrogen 7 mg/dL (6-20); Carbon Dioxide 26 mmol/L (22-29); Chloride 107 mmol/L (98-107); Creatinine Clr Calc Pharmacy 123.0244; Globulin 2.7 g/dL (1.3-4.6); Glomerular Filtration Rate 117.4 mL/min (90-130); Glucose 99 mg/dL (65-115); Osmolality Calculated 294 mOsm/kg (285-295); Potassium 3.9 mmol/L (3.5-5.1); Sodium 143 mmol/L (136-145); Total Bilirubin 0.2 mg/dL (0.15-1.2)
[2023-04-27 18:22] LABS: Acetaminophen < 5.0 ug/mL (10-30); Salicylate < 0.3 mg/dL (3-10)
[2023-04-27 19:56] VITALS: BP 123/72; PULSE 105; RESP 20; TEMP 36.8; O2SAT 96
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
[2023-04-27 21:10] VITALS: BP 123/72; PULSE 105; RESP 20; TEMP 36.8; O2SAT 96
[2023-04-27] MEDS: trazodone 50 mg Tablet PO ×2 (21:19→22:29)
[2023-04-28 06:00] VITALS: BP 101/68; PULSE 63; RESP 16; O2SAT 96
[2023-04-28] MEDS: folic acid 1 mg Tablet PO (09:55)
[2023-04-28] MEDS: multivitamin therapeutic Tablet 1 TAB PO (09:55)
[2023-04-28] MEDS: thiamine 100 mg Tablet PO (09:55)
[2023-04-28 10:18] LABS: Amphetamines Screen Urine Positive (Negative); Barbiturates Screen Urine Negative (Negative); Benzodiazepines Screen Urine Negative (Negative); Cocaine Screen Urine Negative (Negative); Opiate Screen Urine Negative (Negative); PCP Screen Urine Negative (Negative); THC Screen Urine Negative (Negative)
--- NOTE | 2023-04-28 10:45 | W.PM.NPUH&PS ---
Providers/Chief Complaint Admitting Physician: Clint Haynes MD Chief Complaint: PSYCH EVAL HPI NPU History of Present Illness Ayesha Villatoro is a 32 year old female with a history of previous inpatient hospitalizations at the neuropsychiatric unit who was admitted on a 96-hour hold who was admitted while making threats to kill people at [facility] as she had been reportedly threatening to cut their heads off. She had also made references multiple times that she had wished to be . While being escorted into the vehicle, she had raised her hand to her head and acted as if she was going to shoot herself in the head. The patient was admitted to the neuropsychiatric unit for further evaluation and treatment after being evaluated in the emergency department. She had stated that she had been arguing with the information systems security developer. She endorses that she had been at the park near her [place] and had been drinking. Patient had a blood alcohol level of 200 on admission and was positive for amphetamines on a urine drug screen. She reports that she has been feeling pretty good prior to yesterday's problem in the park. She had reported a past history of more significant alcohol use with a history of reported withdrawal symptoms. She had stated that she had not used alcohol in 4 days prior to yesterday but reported no withdrawal symptoms recently. She had also reported no methamphetamine use in several weeks despite the patient having been found to be positive for amphetamines on her urine screen. She reports a continuous history of alcohol use for several years and had reported that she had not been receiving any services recently. She denied any PTSD symptoms. She denied any symptoms suggestive of generalized anxiety disorder but states that she had been managing anxiety in the past as she was attempting to get off of heavy use of opiates and amphetamines. She denies suicidal ideation at this time and states that she had simply been drunk. She denies any feelings of hopelessness or worthlessness. Previous records had indicated that the patient has had a history of significant psychiatric symptoms associated with methamphetamine abuse including auditory and visual hallucinations that she currently is not endorsing. She reports no difficulties with concentration. She does report occasional feelings of hopelessness but denied any suicidal or homicidal thoughts. Inpatient psychiatric history: She has a history of 3 previous inpatient psychiatric hospitalizations at the neuropsychiatric unit. Outpatient psychiatric history: She reports that she had briefly been receiving services through [facility] approximately 1 year ago. Previous records indicate trials on various psychotropic medications including Abilify, risperidone, Wellbutrin and Zoloft. Previous diagnoses include alcohol dependence, generalized anxiety disorder, major depressive disorder, methamphetamine abuse, and opiate abuse. Drug and alcohol history: She reports active alcohol use beginning since her early adolescence. She had reported history of significant withdrawal symptoms from alcohol. She had described being a daily drinker. She had also reported having used methamphetamine since the age of 23 and had likely used within the last few days although the patient had denied this. She reports a history of inpatient and outpatient treatment in the [facility] in 2020 and at another facility in [facility] in 2021. Allergies: No known drug allergies Medical history: None reported Surgical history: Tubal ligation Current medications: vitamin daily Family psychiatric history: History of alcohol abuse on the paternal side of the family. history: None Legal history: She reports no active legal history Social history: Patient was raised in [facility] with her parents until the second grade when her parents are . She states that she had lived mostly with her dad after that.. She has 2 younger siblings and 2 older stepsisters while she was growing up. She had denied any history of sexual physical or emotional abuse. She states that she had graduated from [employer]. She states that she has 2 children ages 7 and 9 who are under the care of the patient's biological mother as she had been unable to manage her kids while using methamphetamines. She had reported in previous records that her mother had received treatment for depression. She reports having few social supports. She takes states that she is currently from her and lives alone and receives some financial support from her mother in a home near where her mother lives. She reports that she has not worked in a few months and reports working temporarily jobs since graduating high school. 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 Her grooming is fair and she is dressed in hospital scrubs. She was pleasant and cooperative on interview and appeared to show no evidence of psychomotor agitation or psychomotor retardation. She was alert and oriented to person place and time. Her speech was normal in regards to rate rhythm and prosody. Her mood was described as okay. Her affect appeared slightly restricted in range and mood incongruent. Her thought process was linear logical and goal-directed. Her thought content showed no evidence of active homicidal or suicidal ideation at this time although she had acknowledged stating specific things including threats to others that is led to her hospitalization. Her recent and remote memory appeared grossly intact. There is no evidence of any abnormal involuntary motor movements tics or tremors appreciated. Her insight is poor. Her judgment is poor. Her impulse control appeared limited. Cognition: Patient Appearance: Appropriate Level of Consciousness: Awake and Alert Patient Cognition Impaired: No Ability to Follow Directions: Poor Patient Orientation (long list): Person, Place, Name, Age and Birthday Comprehension Ability: Moderate Impairment Hallucination Type: None Delusion Description: Not Present Thought Process: Appropriate Affect: Affect Description: Appropriate and Calm Depressive Symptoms: Insomnia Behavior: Patient Behavior: Appropriate and Cooperative Speech Pattern: Appropriate and Clear Vitals/I&O/Wt Last Vital Signs Temp 98.2 F 04/27/23 21:10 Pulse 63 04/28/23 06:00 Resp 16 04/28/23 06:00 BP 101/68 04/28/23 06:00 Pulse Ox 96 04/28/23 06:00 O2 Del Method Room Air 04/27/23 20:39 Weight last 48 hrs Weight 63.503 kg Data NPU 04/27/23 17:25 04/27/23 17:25 A&P Assessment and plan (1) Depressive disorder: (2) Homicidal ideation: (3) Alcohol abuse: (4) Methamphetamine abuse: (5) Suicidal ideation: Plan This is a 32-year-old white female with a prior history of depression and methamphetamine induced psychotic symptoms admitted after being involuntarily hospitalized for making threats to herself and others. She continues to use alcohol at this time and would likely benefit from continued and patient stay while attempting to further evaluate the situation. She continues to appear to be suffering from the effects of alcohol use and would likely benefit from some substance abuse treatment as well. 1.?Encourage individual, group and milieu therapy. 2.?Recommend sober living treatment at the highest level of care to which the patient is willing to commit. 3.??? Continue q-15 minute checks for safety.? 4. Restart outpatient medications. 5. We will attempt to gather collateral information. Involuntary Hold Information 96 Hour Hold: 96 Hour Involuntary Admission: Yes 96 Hour Hold Ending Date: 05/03/23 96 Hour Hold Ending Time: 00:01 Attestations NPU Medical Necessity Statement*: Inpatient hospitalization is medically necessary and deemed to be the clinically appropriate intervention at this time.? We will monitor/initiate medications and make changes as indicated.? She will be in the hospital for over 2 midnights.?Her likely length of stay is 3-5 days. Coding Level of Care Code Acute Code for g Fwd Diagnoses Depressive disorder F32.A Homicidal ideation R45.850 Alcohol abuse F10.10 Methamphetamine abuse F15.10 Suicidal ideation R45.851
[2023-04-28 13:55] VITALS: BP 98/53; PULSE 84; RESP 16; TEMP 36.6; O2SAT 98
[2023-04-28 21:57] VITALS: BP 136/78; PULSE 67; RESP 17; TEMP 36.8; O2SAT 100
[2023-04-29 06:00] VITALS: BP 95/61; PULSE 82; RESP 18; TEMP 36.6; O2SAT 98
[2023-04-29] MEDS: folic acid 1 mg Tablet PO (08:11)
[2023-04-29] MEDS: thiamine 100 mg Tablet PO (08:11)
[2023-04-29] MEDS: multivitamin therapeutic Tablet 1 TAB PO (08:11)
[2023-04-29] MEDS: nicotine 21 mg Patch 1 PATCH TRANSDERMA (08:13)
[2023-04-29] MEDS: blistex lip oint 7 gm Tube 1 APPLIC TOPICAL (11:10)
[2023-04-29 14:00] VITALS: BP 103/62; PULSE 74; RESP 16; TEMP 36.6; O2SAT 98
--- NOTE | 2023-04-29 16:28 | P.NPUPN_ITS ---
Subjective NPU Subjective: 32-year-old white female admitted involuntarily with homicidal threats in the context of significant alcohol abuse. She had minimized the use of methamphetamine despite her testing positive for methamphetamines on admission. She had reported that she was not depressed and feeling pretty good. Staff notes the patient was polite and was able to attend groups without incident. She had reported desire to have received counseling. She had indicated that her situation at home and led to her children not being under her custody. She had minimized having any thoughts of hurting herself or others today.No alcohol withdrawal symptoms appreciated. Mental Status Exam MSE Comments: This is a 31-year-old thin female who appears a little older than her stated age and is in no acute distress. Her grooming is fair and she is dressed in hospital scrubs. She was pleasant and cooperative on interview and appeared to show no evidence of psychomotor agitation or psychomotor retardati on. She was alert and oriented to person place and time. Her speech was normal in regards to rate rhythm and prosody. Her mood was described as good. Her affect remained restricted in range and mood incongruent. Her thought process was linear logical and goal-directed. Her thought content showed no evidence of active homicidal or suicidal ideation at this time although she had acknowledged stating specific things including threats to others that is led to her hospitalization. Her recent and remote memory appeared grossly intact. There is no evidence of any abnormal involuntary motor movements tics or tremors appreciated. Her insight is poor. Her judgment is poor. Her impulse control appeared limited. Cognition: Patient Appearance: Appropriate Level of Consciousness: Awake and Alert Patient Cognition Impaired: No Ability to Follow Directions: Poor Patient Orientation (long list): Person, Place, Name, Age and Birthday Comprehension Ability: Moderate Impairment Hallucination Type: None Delusion Description: Not Present Thought Process: Appropriate Affect: Affect Description: Appropriate and Calm Depressive Symptoms: Insomnia Behavior: Patient Behavior: Appropriate and Cooperative Speech Pattern: Appropriate and Clear Vitals/I&O/Wt Last Vital Signs Temp 98 F 04/29/23 14:00 Pulse 74 04/29/23 14:00 Resp 16 04/29/23 14:00 BP 103/62 04/29/23 14:00 Pulse Ox 98 04/29/23 14:00 O2 Del Method Room Air 04/29/23 14:00 Weight last 48 hrs Weight 63.503 kg Data NPU 04/27/23 17:25 04/27/23 17:25 A&P Assessment and plan (1) Depressive disorder: (2) Homicidal ideation: (3) Alcohol abuse: (4) Methamphetamine abuse: (5) Suicidal ideation: Plan This is a 32-year-old white female with a prior history of depression and methamphetamine induced psychotic symptoms admitted after being involuntarily hospitalized for making threats to herself and others. She continues to use alcohol at this time and would likely benefit from continued and patient stay while attempting to further evaluate the situation. She continues to appear to be suffering from the effects of alcohol use and would likely benefit from some substance abuse treatment as well. 1.?Encourage individual, group and milieu therapy. 2.?Recommend sober living treatment at the highest level of care to which the patient is willing to commit. 3.??? Continue q-15 minute checks for safety.? CIWA-monitor for alcohol withdrawal symptoms. 4. Patient not willing to start medications for depression at this time 5. We will attempt to gather collateral information. Involuntary Hold Information 96 Hour Hold: 96 Hour Involuntary Admission: Yes 96 Hour Hold Ending Date: 05/03/23 96 Hour Hold Ending Time: 00:01 Attestations NPU Medical Necessity Statement*: Inpatient hospitalization is medically necessary and deemed to be the clinically appropriate intervention at this time.? We will monitor/initiate medications and make changes as indicated.? Her likely length of stay is 3-5 days. Coding Level of Care Code Acute Code for [facility] Fwd Diagnoses Depressive disorder F32.A Homicidal ideation R45.850 Alcohol abuse F10.10 Methamphetamine abuse F15.10 Suicidal ideation R45.851
[2023-04-29 20:15] VITALS: BP 111/72; PULSE 61; RESP 16; TEMP 36.9; O2SAT 99
[2023-04-29] MEDS: trazodone 50 mg Tablet PO (23:07)
[2023-04-30 06:00] VITALS: BP 86/53; PULSE 60; RESP 16; TEMP 36.8; O2SAT 98
[2023-04-30] MEDS: multivitamin therapeutic Tablet 1 TAB PO (08:47)
[2023-04-30] MEDS: thiamine 100 mg Tablet PO (08:47)
[2023-04-30] MEDS: folic acid 1 mg Tablet PO (08:47)
[2023-04-30] MEDS: nicotine 21 mg Patch 1 PATCH TRANSDERMA (08:48)
[2023-04-30 14:00] VITALS: BP 102/57; PULSE 69; RESP 16; TEMP 36.6; O2SAT 99
--- NOTE | 2023-04-30 15:12 | W.PM.NPUPNS ---
Subjective NPU Subjective: 32-year-old white female admitted involuntarily with homicidal threats in the context of significant alcohol abuse. The patient had isolated herself on the milieu. She had shown no evidence of any aggression. She had continued to minimize the significance of her alcohol consumption and stated that she would return home to her mother. The patient had been informed that treatment team met communicated with the mother and she had expressed concern about the patient returning home. She had then stated that she would go to live with a friend but did not appear to have a clear plan worked out for this plan. She continued to minimize feeling depressed. She had continued to express limited concern that her children were not in her custody and that her inability to manage her children had led to her mother needing to take control of her children. She had reported having no desire to receive treatment for her addiction. She continued to offer up no reasonable explanation for how she had tested positive for amphetamines. No alcohol withdrawal symptoms were noted today by staff. Mental Status Exam MSE Comments: This is a 31-year-old thin female who appears a little older than her stated age and is in no acute distress. Her grooming is fair and she is dressed in hospital scrubs. She was pleasant and superficially cooperative on interview and appeared to show no evidence of psychomotor agitation or psychomotor retardation. She was alert and oriented to person place and time. Her speech was normal in regards to rate rhythm and prosody. Her mood was described as good. Her affect remained restricted in range and mood incongruent. Her thought process was linear logical and goal-directed. Her thought content showed no evidence of active homicidal or suicidal ideation at this time. Her recent and remote memory appeared grossly intact. There is no evidence of any abnormal involuntary motor movements tics or tremors appreciated. Her insight is feeble. Her judgment is poor. Her impulse control appeared limited. Cognition: Patient Appearance: Appropriate Level of Consciousness: Awake and Alert Patient Cognition Impaired: No Ability to Follow Directions: Poor Patient Orientation (long list): Person, Place, Name, Age and Birthday Comprehension Ability: Moderate Impairment Hallucination Type: None Delusion Description: Not Present Thought Process: Appropriate Affect: Affect Description: Appropriate and Calm Depressive Symptoms: Insomnia Behavior: Patient Behavior: Appropriate and Cooperative Speech Pattern: Appropriate and Clear Vitals/I&O/Wt Last Vital Signs Temp 97.8 F 04/30/23 14:00 Pulse 69 04/30/23 14:00 Resp 16 04/30/23 14:00 BP 102/57 04/30/23 14:00 Pulse Ox 99 04/30/23 14:00 O2 Del Method Room Air 04/30/23 14:00 Data NPU 04/27/23 17:25 04/27/23 17:25 A&P Assessment and plan (1) Depressive disorder: (2) Homicidal ideation: (3) Alcohol abuse: (4) Methamphetamine abuse: (5) Suicidal ideation: Plan This is a 32-year-old white female with a prior history of depression and methamphetamine induced psychotic symptoms admitted after being involuntarily hospitalized for making threats to herself and others. She continues to use alcohol at this time and would likely benefit from continued and patient stay while attempting to further evaluate the situation. She continues to appear to be suffering from the effects of alcohol use and would likely benefit from some substance abuse treatment as well. 1.?Encourage individual, group and milieu therapy. 2.?Recommend sober living treatment at the highest level of care to which the patient is willing to commit. 3.??? Continue q-15 minute checks for safety.? CIWA-monitor for alcohol withdrawal symptoms. 4. Patient not willing to start medications for depression at this time 5. We will attempt to gather collateral information. Involuntary Hold Information 96 Hour Hold: 96 Hour Involuntary Admission: Yes 96 Hour Hold Ending Date: 05/03/23 96 Hour Hold Ending Time: 00:01 Attestations NPU Medical Necessity Statement*: Inpatient hospitalization is medically necessary and deemed to be the clinically appropriate intervention at this time.? We will monitor/initiate medications and make changes as indicated.? Her likely length of stay is 3-5 days. Coding Level of Care Code Acute Code for g Fwd Diagnoses Depressive disorder F32.A Homicidal ideation R45.850 Alcohol abuse F10.10 Methamphetamine abuse F15.10 Suicidal ideation R45.851
[2023-04-30] MEDS: trazodone 50 mg Tablet PO ×2 (20:02→21:06)
[2023-04-30 20:44] VITALS: BP 109/63; PULSE 102; RESP 16; O2SAT 99
[2023-05-01 06:00] VITALS: BP 96/61; PULSE 83; RESP 16; O2SAT 98
[2023-05-01] MEDS: thiamine 100 mg Tablet PO (09:54)
[2023-05-01] MEDS: multivitamin therapeutic Tablet 1 TAB PO (09:54)
[2023-05-01] MEDS: folic acid 1 mg Tablet PO (09:54)
--- NOTE | 2023-05-01 12:56 | PC.NURSE ---
nicotine patch removed at 1228
[2023-05-01 14:00] VITALS: BP 101/66; PULSE 81; RESP 16; TEMP 36.9; O2SAT 100
--- NOTE | 2023-05-01 15:05 | W.PM.NPUPNS ---
Subjective NPU Subjective: 32-year-old white female admitted involuntarily with homicidal threats in the context of significant alcohol abuse. Patient had appeared polite and cooperative on the milieu. She continued to reiterate that she had a place to go stating that she had been at the top of a house. The patient had apparently caused a incident at the [facility] house and apparently was no longer welcome there. She had then reported that she could return to her mother's home although this was not an option also according to the mother. The patient had again appeared flabbergasted that she had tested positive for methamphetamine indicating that she did not have any idea how it had been in her urine. She had continued to endorse having little desire for treatment regarding her alcohol abuse or methamphetamine use. Mental Status Exam MSE Comments: This is a 31-year-old thin female who appears a little older than her stated age and is in no acute distress. Her grooming is fair and she is dressed in hospital scrubs. She was pleasant and superficially cooperative on interview and appeared to show no evidence of psychomotor agitation or psychomotor retardation. She was alert and oriented to person place and time. Her speech was normal in regards to rate rhythm and prosody. Her mood was described as good. Her affect remained restricted. Her thought process was linear logical and goal-directed. Her thought content showed no evidence of active homicidal or suicidal ideation at this time. Her recent and remote memory appeared grossly intact. There is no evidence of any abnormal involuntary motor movements tics or tremors appreciated. Her insight is feeble. Her judgment is poor. Her impulse control appeared limited. Cognition: Patient Appearance: Appropriate Level of Consciousness: Awake and Alert Patient Cognition Impaired: No Ability to Follow Directions: Poor Patient Orientation (long list): Person, Place, Name, Age and Birthday Comprehension Ability: Moderate Impairment Hallucination Type: None Delusion Description: Not Present Thought Process: Appropriate Affect: Affect Description: Appropriate and Calm Depressive Symptoms: Insomnia Behavior: Patient Behavior: Appropriate and Cooperative Speech Pattern: Appropriate and Clear Vitals/I&O/Wt Last Vital Signs Temp 97.8 F 04/30/23 14:00 Pulse 83 05/01/23 06:00 Resp 16 05/01/23 06:00 BP 96/61 05/01/23 06:00 Pulse Ox 98 05/01/23 06:00 O2 Del Method Room Air 04/30/23 20:44 Data NPU 07/29/23 17:25 04/27/23 17:25 A&P Assessment and plan (1) Depressive disorder: (2) Homicidal ideation: (3) Alcohol abuse: (4) Methamphetamine abuse: (5) Suicidal ideation: Plan This is a 32-year-old white female with a prior history of depression and methamphetamine induced psychotic symptoms admitted after being involuntarily hospitalized for making threats to herself and others. She continues to use alcohol at this time and would likely benefit from continued and patient stay while attempting to further evaluate the situation. She continues to appear to be suffering from the effects of alcohol use and would likely benefit from some substance abuse treatment as well. 1.?Encourage individual, group and milieu therapy. 2.?Recommend sober living treatment at the highest level of care to which the patient is willing to commit. 3.??? Continue q-15 minute checks for safety.? CIWA-monitor for alcohol withdrawal symptoms. No withdrawal symptoms at this time. Patient unmotivated to receive help with polysubstance abuse despite significant issues leading to homelessness and loss of custody of children. 4. Patient not willing to start medications for depression at this time 5. We will attempt to gather collateral information. Involuntary Hold Information 96 Hour Hold: 96 Hour Involuntary Admission: Yes 96 Hour Hold Ending Date: 05/03/23 96 Hour Hold Ending Time: 00:01 Attestations NPU Medical Necessity Statement*: Inpatient hospitalization is medically necessary and deemed to be the clinically appropriate intervention at this time.? We will monitor/initiate medications and make changes as indicated with her likely length of stay is 3-5 days. Coding Level of Care Code Acute Code for [facility] Fwd Diagnoses Depressive disorder F32.A Homicidal ideation R45.850 Alcohol abuse F10.10 Methamphetamine abuse F15.10 Suicidal ideation R45.851
[2023-05-01] MEDS: nicotine 21 mg Patch 1 PATCH TRANSDERMA (15:35)
--- NOTE | 2023-05-01 15:55 | W.PM.NPUDCS ---
Diagnoses at Discharge Discharge Diagnosis (1) Depressive disorder: Status: Acute (2) Homicidal ideation: Status: Acute (3) Alcohol abuse: Status: Acute (4) Methamphetamine abuse: Status: Acute (5) Suicidal ideation: Status: Acute Reason for Visit Reason for Visit: PSYCH EVAL Brief History: HPI NPU History of Present Illness Ayesha Villatoro is a 32 year old female with a history of previous inpatient hospitalizations at the neuropsychiatric unit who was admitted on a 96-hour hold who was admitted while making threats to kill people at [facility] as she had been reportedly threatening to cut their heads off.? She had also made references multiple times that she had wished to be .? While being escorted into the vehicle, she had raised her hand to her head and acted as if she was going to shoot herself in the head.? The patient was admitted to the neuropsychiatric unit for further evaluation and treatment after being evaluated in the emergency department.? She had stated that she had been arguing with the senior center director.? She endorses that she had been at the park near her [place] and had been drinking.? Patient had a blood alcohol level of 200 on admission and was positive for amphetamines on a urine drug screen.? She reports that she has been feeling pretty good prior to yesterday's problem in the park.? She had reported a past history of more significant alcohol use with a history of reported withdrawal symptoms.? She had stated that she had not used alcohol in 4 days prior to yesterday but reported no withdrawal symptoms recently.? She had also reported no methamphetamine use in several weeks despite the patient having been found to be positive for amphetamines on her urine screen.? She reports a continuous history of alcohol use for several years and had reported that she had not been receiving any services recently.? She denied any PTSD symptoms.? She denied any symptoms suggestive of generalized anxiety disorder but states that she had been managing anxiety in the past as she was attempting to get off of heavy use of opiates and amphetamines.? She denies suicidal ideation at this time and states that she had simply been drunk.? She denies any feelings of hopelessness or worthlessness.? Previous records had indicated that the patient has had a history of significant psychiatric symptoms associated with methamphetamine abuse including auditory and visual hallucinations that she currently is not endorsing.? She reports no difficulties with concentration.? She does report occasional feelings of hopelessness but denied any suicidal or homicidal thoughts. Inpatient psychiatric history: She has a history of 3 previous inpatient psychiatric hospitalizations at the neuropsychiatric unit. Outpatient psychiatric history: She reports that she had briefly been receiving services through [facility] approximately 1 year ago.? Previous records indicate trials on various psychotropic medications including Abilify, risperidone,? Wellbutrin and Zoloft. Previous diagnoses include alcohol dependence, generalized anxiety disorder, major depressive disorder, methamphetamine abuse, and opiate abuse. Drug and alcohol history: She reports active alcohol use beginning since her early adolescence.? She had reported history of significant withdrawal symptoms from alcohol.? She had described being a daily drinker.? She had also reported having used methamphetamine since the age of 23 and had likely used within the last few days although the patient had denied this.? She reports a history of inpatient and outpatient treatment in the [facility] and at another facility in [facility] in 2021. Allergies: No known drug allergies Medical history: None reported Surgical history: Tubal ligation Current medications: vitamin daily Family psychiatric history: History of alcohol abuse on the paternal side of the family. history: None Legal history: She reports no active legal history Social history: Patient was raised in [facility] with her parents until the second grade when her parents are .? She states that she had lived mostly with her dad after that..? She has 2 younger siblings and 2 older stepsisters while she was growing up.? She had denied any history of sexual physical or emotional abuse.? She states that she had graduated from [employer].? She states that she has 2 children ages 7 and 9 who are under the care of the patient's biological mother as she had been unable to manage her kids while using methamphetamines.? She had reported in previous records that her mother had received treatment for depression.? She reports having few social supports.? She takes states that she is currently from her and lives alone and receives some financial support from her mother in a home near where her mother lives.? She reports that she has not worked in a few months and reports working temporarily jobs since graduating high school. Hospital Course Hospital Course During the hospitalization, the patient had routine laboratory studies which were within normal limits except for a few outliers.? Additionally, there was a general medical evaluation which was also within normal limits and revealed no new acute processes.? At the time of discharge, she denies psychosis or lethality.? Mood and anxiety were well managed.? Patient was evaluated and deemed to be absent credible lethality, and had achieved the maximum benefit from an inpatient hospitalization given her lack of participation, so she was discharged.She had minimized need for treatment for her problems despite significant consequences associated with her addiction. She rejected any inpatient or outpatient treatment for her mood or substance use. Involuntary Hold Information 96 Hour Hold: 96 Hour Involuntary Admission: Yes 96 Hour Hold Ending Date: 05/03/23 96 Hour Hold Ending Time: 00:01 Mental Status Exam MSE Comments: This is a 31-year-old thin female who appears a little older than her stated age and is in no acute distress. Her grooming is fair and she is dressed in hospital scrubs. She was pleasant and superficially cooperative on interview and appeared to show no evidence of psychomotor agitation or psychomotor retardation. She was alert and oriented to person place and time. Her speech was normal in regards to rate rhythm and prosody. Her mood was described as good. Her affect was superficially euthymic. Her thought process was linear logical and goal-directed. Her thought content showed no evidence of active homicidal or suicidal ideation at this time. Her recent and remote memory appeared grossly intact. There is no evidence of any abnormal involuntary motor movements tics or tremors appreciated. Her insight is feeble. Her judgment is poor. Her impulse control appeared limited. Behavior: Patient Behavior: Appropriate and Cooperative Speech Pattern: Appropriate and Clear Discharge Data Studies Completed and Pending: Laboratory Results WBC 5.2 10^3/uL (4.0- 10.0) 04/27/23 17:25 RBC 4.17 10^6/uL (4.1 -5.3) 04/27/23 17:25 Hgb 13.3 g/dL (11.5-1 5.3) 04/27/23 17:25 Hct 39.9 % (37.0-47.0 ) 04/27/23 17:25 MCV 95.7 fl (81-99) 04/27/23 17:25 MCH 31.9 pg (28.0-34. 0) 04/27/23 17:25 MCHC 33.3 g/dL (30.0-3 6.0) 04/27/23 17:25 RDW 12.6 % (12.1-15.1 ) 04/27/23 17:25 Plt Count 315 10^3/cmm (130 -400) 04/27/23 17:25 MPV 9.7 fL (7.4-10.4) 04/27/23 17:25 Neut % (Auto) 54.5 % 04/27/23 17:25 Lymph % (Auto) 32.7 % 04/27/23 17:25 [place] % (Auto) 11.1 % 04/27/23 17:25 Eos % (Auto) 0.2 % 04/27/23 17:25 Baso % (Auto) 1.1 % 04/27/23 17:25 Neut # (Auto) 2.85 10^3/uL (1.8 -7.7) 04/27/23 17:25 Lymph # (Auto) 1.7 10^3/uL (0.8- 4.8) 04/27/23 17:25 [place] # (Auto) 0.6 10^3/uL (0.2- 0.9) 04/27/23 17:25 Eos # (Auto) 0.0 10^3/uL (0.0- 0.8) 04/27/23 17:25 Baso # (Auto) 0.1 10^3/uL (0.0- 0.1) 04/27/23 17:25 Nucleated RBC % (a uto) 0 % 04/27/23 17:25 Nucleated RBCs # 0.0 /100WBC 04/27/23 17:25 Sodium 143 mmol/L (136-1 45) 04/27/23 17:25 Potassium 3.9 mmol/L (3.5-5 .1) 04/27/23 17:25 Chloride 107 mmol/L (98-10 7) 04/27/23 17:25 Carbon Dioxide 26 mmol/L (22-29) 04/27/23 17:25 Anion Gap 13.9 (5-19) 04/27/23 17:25 BUN 7 mg/dL (6-20) 04/27/23 17:25 Creatinine 0.6 mg/dL (0.5-0. 9) 04/27/23 17:25 GFR Calculation 117.4 mL/min (90- 130) 04/27/23 17:25 Glucose 99 mg/dL (65-115) 04/27/23 17:25 Calculated Osmolal ity 294 mOsm/kg (285- 295) 04/27/23 17:25 Calcium 9.0 mg/dL (8.5-10 .5) 04/27/23 17:25 Total Bilirubin 0.2 mg/dL (0.15-1 .2) 04/27/23 17:25 AST 23 U/L (0-32) 04/27/23 17:25 ALT 14 U/L (0-33) 04/27/23 17:25 Alkaline Phosphata se 60 U/L (35-105) 04/27/23 17:25 Total Protein 7.0 g/dL (6.6-8.7 ) 04/27/23 17:25 Albumin 4.3 g/dL (3.5-5.2 ) 04/27/23 17:25 Globulin 2.7 g/dL (1.3-4.6 ) 04/27/23 17:25 TSH 1.20 uIU/mL (0.27 -4.20) 04/27/23 17:25 HCG, Qual Negative (Negati ve) 04/27/23 17:25 Salicylates < 0.3 mg/dL (3-10 ) L 04/27/23 17:25 Urine Opiates Scre en Negative ng/mL (N egative) 04/27/23 09:05 Acetaminophen < 5.0 ug/mL (10-3 0) L 04/27/23 17:25 Ur Barbiturates Sc reen Negative ng/mL (N egative) 04/27/23 09:05 Ur Phencyclidine S crn Negative ng/mL (N egative) 04/27/23 09:05 Ur Amphetamines Sc reen Positive ng/mL (N egative) H 04/27/23 09:05 U Benzodiazepines Scrn Negative ng/mL (N egative) 04/27/23 09:05 Urine Cocaine Scre en Negative ng/mL (N egative) 04/27/23 09:05 U Marijuana (THC) Screen Negative ng/mL (N egative) 04/27/23 09:05 Ethyl Alcohol 200 mg/dL (0-10) H 04/27/23 17:25 Vitals: Last Vital Signs Temp 98.4 F 05/01/23 14:00 Pulse 81 05/01/23 14:00 Resp 16 05/01/23 14:00 BP 101/66 05/01/23 14:00 Pulse Ox 100 05/01/23 14:00 O2 Del Method Room Air 04/30/23 20:44 Discharge Plan Discharge Patient Disposition: Home Condition: Stable Prescriptions: Continued 28-800 mg-mcg Tablet 1 tab PO DAILY Discharge Orders: Discharge Order (Routine); Ordered 05/01/23 Ordered By: Severo Smith Referrals: [facility] [Other] - 1-3 days (Please contact [facility] for Psychiatry and therapy needs at [facility] and sponsored by [facility]) Discharge Diet: Usual diet Discharge Activity: Resume usual activity Patient Instructions: Opioid Safety Discharge Attestations NPU Time Spent in Discharge Care*: less than 30 min Coding Level of Care Code Acute g DC note Diagnoses Depressive disorder F32.A Homicidal ideation R45.850 Alcohol abuse F10.10 Methamphetamine abuse F15.10 Suicidal ideation R45.851
[2023-05-01 15:58] VITALS: BP 101/66; PULSE 81; RESP 16; TEMP 36.9; O2SAT 100
--- NOTE | 2023-05-01 16:25 | PC.NURSE ---
written discharge instruction discussed and left with patient. pt stated understanding and compliance. pt leaving with friend in pov.
--- NOTE | 2023-05-01 17:16 | PC.NURSE ---
FOUND USED CANNABIS IN PT BELONGINGS. SECURITY CALLED DOWN AND WITNESSED THIS RN WASTE THE CANNABIS.
== END 2023-05-01 16:30 | disposition home or self-care (01) | DRG 897 ==
LOC: ER 17:49 → NP 18:23
PROVIDERS: Admitting Provider Psychiatry & Neurology Psychiatry; Emergency Provider Emergency Medicine; Visit Provider Psychiatry & Neurology Psychiatry
DX: F10.229 Alcohol dependence with intoxication, unspecified (principal); R45.851 Suicidal ideations; F33.9 Major depressive disorder, recurrent, unspecified; F15.159 Other stimulant abuse with stimulant-induced psychotic disorder, unspecified; R45.850 Homicidal ideations; Y90.7 Blood alcohol level of 200-239 mg/100 ml; F17.210 Nicotine dependence, cigarettes, uncomplicated; Z81.1 Family history of alcohol abuse and dependence
CPT/HCPCS: 36415; 80053; 80306; 80307; 84443; 84703; 85025; 96372; 97165; 99238; 99285; J3411